=== PATIENT | female | born 1995 | race Caucasian/White ===

== ENCOUNTER 2018-03-05 09:28 | Emergency (ER) | payer MEDICAID ==
[2018-03-05 09:29] VITALS: BMI 20.5
[2018-03-05 09:37] VITALS: PULSE 78; RESP 18; TEMP 98; O2SAT 98
--- NOTE | 2018-03-05 10:27 | C.PDOC ---
History Of Present Illness 22 year old female presents to the ER via EMS crying and upset after having an argument with her mother. Patient is hesitant to provide further details, states she needs to talk to someone. Denies suicidal or homicidal ideation. Time Seen by Provider: 03/05/18 09:54 Chief Complaint (Nursing): Anxiety History Per: Patient History/Exam Limitations: no limitations Onset/Duration Of Symptoms: Hrs Suicide/Self Injury Attempted (Context): None Modifying Factor(s): None Severity: None Associated Symptoms: denies: Suicidal Thoughts, Other (homicidal ideation) Involuntary Hold By: None Recent travel outside of the [place]: No Past Medical History Reviewed: Historical Data, Nursing Documentation, Vital Signs Vital Signs: Last Vital Signs Temp 98 F 03/05/18 09:35 Pulse 78 03/05/18 09:35 Resp 18 03/05/18 09:35 BP 137/92 H 03/05/18 09:35 Pulse Ox 98 03/05/18 10:56 Family History: States: Unknown Family Hx - Social History Hx Tobacco Use: No Hx Alcohol Use: No Hx Substance Use: No - Immunization History Hx Tetanus Toxoid Vaccination: Yes Hx Influenza Vaccination: Yes Hx Pneumococcal Vaccination: Yes Review Of Systems Respiratory: Negative for: Shortness of Breath, Wheezing Psych: Positive for: Anxiety. Negative for: Suicidal ideation, Other ( Homicidal ideation) Physical Exam - Physical Exam Appears: Non-toxic, Other (Crying, Anxious) Skin: Normal Color, Warm, Dry Head: Atraumatic, Normacephalic Eye(s): bilateral: Normal Inspection Chest: Symmetrical, No Deformity Cardiovascular: Rhythm Regular Respiratory: Normal Breath Sounds, No Rales, No Rhonchi, No Wheezing Extremity: Other (Atraumatic) Neurological/Psych: Oriented x3, Normal Speech ED Course And Treatment O2 Sat by Pulse Oximetry: 98 (Room air) Pulse Ox Interpretation: Normal Medical Decision Making Medical Decision Making: RITU Joiner evaluated patient at bedside recommends anxiolytic. Follow up appointment arranged with Dr Bateman on Mon03/07/18 4pm 1212 patient reevaluated and is feeling better, no longer anxious appearing. She feels comfortable going home. Patient to follow up outpatient Disposition Counseled Patient/Family Regarding: Diagnosis, Need For Followup - Disposition Referrals: Farhad Bateman MD [Staff Provider] - Disposition Time: 12:17 Condition: IMPROVED Additional Instructions: Follow up appointment with Dr Bateman on Mon03/07/18 4pm Instructions: Anxiety, Adult (DC) Forms: [facility] ([place]) - POA Present On Arrival: None - Clinical Impression Clinical Impression: Anxiety - Scribe Statement The provider has reviewed the documentation as recorded by the Scribe Manny Peña All medical record entries made by the Scribe were at my direction and personally dictated by me. I have reviewed the chart and agree that the record accurately reflects my personal performance of the history, physical exam, medical decision making, and the department course for this patient. I have also personally directed, reviewed, and agree with the discharge instructions and disposition.
[2018-03-05 12:25] VITALS: BP 126/74
== END 2018-03-05 12:25 | disposition home or self-care (01) ==
LOC: C.ER 09:28
DX: F41.9 Anxiety disorder, unspecified (principal)